=== PATIENT | male | born 1970 | race African-American/Black ===

== ENCOUNTER 2016-08-30 11:25 | Emergency (ER) | payer OTHER ==
[~2016-08-30] VITALS: Ht 182.9 cm; Wt 95.4 kg
[~2016-08-30 11:25] MED LIST: NAPROSYN500 MG PO; NEXIUM20 MG PO; NORCO 5/3251 TABLET PO; SKELAXIN800 MG PO
[2016-08-30 12:14] LABS: HEMATOCRIT 41.9 % (38.0-50.0); MCH 32.9 PG (29.0-34.0); MCHC 34.6 G/DL (30.0-36.0); PLATELET COUNT 205 K/uL (156-360); RBC DIS.WIDTH-CV 13.3 % (11.8-14.6); RBC DIS.WIDTH-SD 46.9 % (39-53); RED BLOOD COUNT 4.41 M/uL (4.00-5.50); WHITE BLOOD COUNT 7.8 K/uL (4.1-10.2)
[2016-08-30 12:17] LABS: ADD MIUA? NO; BILIRUBIN NEGATIVE; BLOOD NEGATIVE; COLOR YELLOW ((YELLOW)); GLUCOSE (STRIP) 50; KETONES NEGATIVE; LEUKOCYTES NEGATIVE; NITRITE NEGATIVE; PROTEIN (STRIP) 30; SPECIFIC GRAVITY 1.019 (1.000-1.030); UCUL ADDED? NO; UROBILINOGEN 0.2 MG/DL (0.2-1.0)
[2016-08-30 12:29] LABS: CHLORIDE 103 mEq/L (99-109); POTASSIUM 3.7 mEq/L (3.7-5.4); SODIUM 138 mEq/L (136-147)
[2016-08-30 12:31] LABS: GLUCOSE 111 mg/dL (70-99)
[2016-08-30 12:32] LABS: ANION GAP 11 MEQ/L (2-14)
[2016-08-30 12:33] LABS: TOTAL BILIRUBIN 0.6 mg/dL (0.0-1.0)
[2016-08-30 12:35] LABS: ALKALINE PHOSPHATASE 97 IU/L (3-129); GFR ESTIMATE (CALCULATED) > 59 mL/min/
[2016-08-30 12:36] LABS: UREA NITROGEN (BUN) 12 mg/dL (9-23)
[2016-08-30 12:38] LABS: LIPASE 43 U/L (1.0-51.0)
[2016-08-30] MEDS ORDERED: BENTYL20 MG PO (13:04)
[2016-08-30] MEDS ORDERED: ZANTAC150 MG PO (13:04)
[2016-08-30] MEDS ORDERED: ZOFRAN ODT4 MG PO (13:04)
[2016-08-30 13:18] VITALS: BP 143/89
== END 2016-08-30 13:19 | disposition home or self-care (01) ==
LOC: EME 11:25
DX: R11.2 Nausea with vomiting, unspecified (principal); R19.7 Diarrhea, unspecified; R10.30 Lower abdominal pain, unspecified; F17.200 Nicotine dependence, unspecified, uncomplicated
CPT/HCPCS: 74000; 80053; 81003; 83690; 85027; 99281; 99284